=== PATIENT | female | born 2000 | race Two or more races ===

== ENCOUNTER 2022-06-09 11:52 | Emergency (ER) | payer OTHER ==
[~2022-06-09] VITALS: Ht 160 cm; Wt 72.6 kg
[2022-06-09 11:52] VITALS: BP 112/70
--- NOTE | 2022-06-09 11:52 | NUR ---
BIBS C/O EAR PRESSURE THAT HAS INCREASED OVER A WEEK SPAN AND RECENTLY UNABLE TO HEAR FROM HER L EAR, DENIES ANY PAIN
--- NOTE | 2022-06-09 11:52 | NUR ---
Mar vigil in ED - 06/09/22 at 1202 by SELVIN BIBS C/O EAT PRESSURE THAT HAS INCREASED OVER A WEEK SPAN AND RECENTLY UNABLE TO HEAR FROM HER L EAR, DENIES ANY PAIN
[2022-06-09] MEDS ORDERED: CETI1TAB9 PO (12:02)
[2022-06-09] MEDS ORDERED: AMOX-427 PO (12:02)
--- NOTE | 2022-06-09 12:09 | NUR ---
Patient discharged to home in stable condition. Written and verbal after care instructions given. Patient verbalizes understanding of instruction.
== END 2022-06-09 12:12 | disposition home or self-care (01) ==
LOC: ER 11:52
DX: H66.92 Otitis media, unspecified, left ear (principal); Z79.899 Other long term (current) drug therapy